=== PATIENT | female | born 1965 | race Hispanic/Latino ===

== ENCOUNTER → 2018-01-12 | Day surgery (SDC) | payer OTHER ==
[~2018-01-12] MED LIST: CEFTRIAXONE SOD 1 GM VIAL ONE; DEXAMETHASONE SOD PHOS INJ 4 MG/ML VIAL ONE; FENTANYL CITRATE/PF 100MCG/2 ML INJ ONE; IOPAMIDOL 610MG/1ML 300 MG/ML VIAL IV ONE; LIDOCAINE HCL 2% LOCAL INJ 5 ML SDV VIAL INJ ONE; MIDAZOLAM HCL 2 MG/2 ML VIAL ONE; MORPHINE SULFATE 2 MG/ML SYR ONE; ONDANSETRON HCL INJ 2 MG/ML VIAL ONE; PROPOFOL IV EMULSION 10 MG/ML 20 ML VIAL ONE; SEVOFLURANE INHAL SOLN 250 ML PEN BTL ONE; TYLENOL PO; TYLENOL WITH C1 EACH PO; ZESTRIL20 MG PO
--- OUTSIDE RECORDS SUMMARY | 2018-01-12 07:48 | XMS REPORT | Clinical Summary ---
Author Author [facility] Organization [facility] Address Unknown Phone Unavailable Care Team Providers Care Purchase Order Checker Name Role Phone Michelle López PCP Allergies No Known Allergies Current Medications Prescription Sig. Disp. Refills Start End Date Status Date lisinopril 09/22/19 Active (PRINIVIL,ZESTRIL) 20 mg 17 tablet lansoprazole (PREVACID) Take 30 mg by mouth Active 30 MG capsule daily. Active Problems Not on file Family History Medical History Relation Name Comments Diabetes Mother Heart disease Mother Relation Name Status Comments Brother Alive Father Mother Alive Sister Alive Social History Tobacco Use Types Packs/Day Years Used Date Never Smoker Alcohol Use Drinks/Week oz/Week Comments Yes Sex Assigned at Date Recorded Not on file Last Filed Vital Signs Not on file Plan of Treatment Health Maintenance Due Date Last Done Comments CERVICAL CANCER SCREENING 1987 BREAST CANCER SCREENING 02/09/2016 COLON CANCER SCREENING 02/09/2016 SHINGRIX VACCINE (#1) 02/09/2016 INFLUENZA VACCINE 03/14/2018 Results Not on fileafter 01/11/2017
--- NOTE | 2018-01-12 12:30 | Diagnostic Imaging Report ---
PROCEDURE: X-RAY RETROGRADE PYELOGRAM (left) COMPARISON: None. INDICATIONS: Not provided. FINDINGS: Contrast was instilled into the distal left ureter without stricture or abnormal filling defect. There is a partially duplicated left renal collecting system. The collecting system of the upper pole moiety is prominent suggestive of obstruction. Subsequently, a double J stent was placed into the upper pole moiety. The lower pole moiety filled normally with normal morphology. Cumulative fluoro time: 00:01:38 Cumulative area dose product: 738.90 cGycm2 Cumulative air kerma: 20.73 mGy CONCLUSION: Retrograde pyelogram with placement of ureteral stent as described above. Dictated by: Abel Haney M.D. on 01/12/2018 at 12:33 Electronically approved by: Abel Haney M.D. on 01/12/2018 at 12:33
--- NOTE | 2018-01-14 11:45 | Operative Report ---
DATE OF PROCEDURE: January 12, 2018 PREOPERATIVE DIAGNOSES 1. Left kidney stone. 2. Congenital left renal duplication. 3. Left hydronephrosis. POSTOPERATIVE DIAGNOSES 1. Left kidney stone. 2. Congenital left renal duplication. 3. Left hydronephrosis. PROCEDURES 1. Left-sided ureteroscopy with laser lithotripsy in a staged fashion (entirely separate procedure for large symptomatic kidney stone with failed lithotripsy). 2. Cystourethroscopy with insertion of a left indwelling ureteral stent (entirely separate procedure for the diagnosis of left hydronephrosis). 3. Supervision of fluoroscopy during the ureteroscopic portion. 4. Supervision of fluoroscopy for the stent portion. 5. Interpretation of retrograde pyelography. ANESTHESIA: General. ESTIMATED BLOOD LOSS: Minimal. COMPLICATIONS: None. INDICATIONS FOR PROCEDURE: Ms. Reyes is a 52-year-old female who has failed lithotripsy of a large symptomatic kidney stone. She and I had a long discussion regarding the alternatives, risks and benefits, including doing nothing, repeated shock-wave lithotripsy that had failed, ureteroscopy, percutaneous surgery or open surgery. She voiced an understanding of the options, the alternatives, and the risks and benefits, and she elected to proceed. PROCEDURE IN DETAIL: After informed consent was obtained, the patient was taken to the operating suite and placed supine on the operating table and underwent general anesthesia by the anesthesia service. She was placed in the dorsal lithotomy position. She was sterilely prepped and draped in the standard fashion for ureteroscopy. A 22.5-Dominican cystoscope was inserted per urethra. A normal urethra was noted. Panendoscopy of the bladder revealed no tumors and no stones. Both ureteral orifices were in their normal anatomic location and position. Retrograde pyelograms were performed, which revealed partially duplicated left collecting system. The stone was in the upper pole moiety. With a moderate degree of difficulty, a guidewire was inserted in the left upper pole. A ureteral access sheath was then deployed. A 2nd safety wire was introduced. The ureteroscope was driven into the upper pole. Utilizing a 365 micron laser fiber, the stone was ablated into fragments smaller than the wire. Retrograde pyelogram confirmed this. A 6 x 28 ureteral stent was then deployed with a coil in the upper pole moiety and a coil in the bladder. The patient's bladder was drained. She was awakened from anesthesia and transported to the recovery room in excellent condition. No untoward effects were noted. SUPERVISION OF FLUOROSCOPY AND INTERPRETATION OF RETROGRADE PYELOGRAPHY: I was present throughout the entire procedure and supervised the use of fluoroscopy. There was no radiologist present. Attention was turned toward the left ureteral orifice, which was catheterized, and a retrograde pyelogram revealed a partially duplicated system with a large obstructing stone in the left upper pole. Job#: [id number]
== END | disposition home or self-care (01) ==
LOC: OR 07:46
PROVIDERS: ATTEND Urology
DX: N20.0 Calculus of kidney (principal); Q63.0 Accessory kidney; N39.0 Urinary tract infection, site not specified; N13.30 Unspecified hydronephrosis; I10 Essential (primary) hypertension; Z01.810 Encounter for preprocedural cardiovascular examination
CPT/HCPCS: 52356; 74420; 81025; 93005; C1766; C1874; J0696; J1100; J2001; J2250; J2270; J2405; Q9967

== ENCOUNTER → 2018-03-06 | Outpatient (CLI) | payer OTHER ==
[~2018-03-06] MED LIST changes: -CEFTRIAXONE SOD 1 GM VIAL ONE; -DEXAMETHASONE SOD PHOS INJ 4 MG/ML VIAL ONE; -FENTANYL CITRATE/PF 100MCG/2 ML INJ ONE; -IOPAMIDOL 610MG/1ML 300 MG/ML VIAL IV ONE; -LIDOCAINE HCL 2% LOCAL INJ 5 ML SDV VIAL INJ ONE; -MIDAZOLAM HCL 2 MG/2 ML VIAL ONE; -MORPHINE SULFATE 2 MG/ML SYR ONE; -ONDANSETRON HCL INJ 2 MG/ML VIAL ONE; -PROPOFOL IV EMULSION 10 MG/ML 20 ML VIAL ONE; -SEVOFLURANE INHAL SOLN 250 ML PEN BTL ONE
--- NOTE | 2018-03-06 18:30 | Diagnostic Imaging Report ---
PROCEDURE:X-RAY ABDOMEN - KUB COMPARISON:None. INDICATIONS:CALCULUS OF KIDNEY FINDINGS: There is a non-obstructed bowel-gas pattern. Linear radiopaque density projecting in the superior to mid left renal shadow may represent rib calcification rather than a nonobstructing calculus. No other radiopaque densities project over the renal shadows, expected course of the ureters or bladder. Left pelvic phlebolith. No acute bony abnormalities. CONCLUSION: No definite calcifications over the genitourinary tract. Mehrdad Man M.D. Dictated by: Mehrdad Man M.D. on 03/06/2018 at 18:35 Electronically approved by: Mehrdad Man M.D. on 03/06/2018 at 18:35
== END ==
LOC: RAD 17:27
PROVIDERS: ATTEND Urology
DX: N20.0 Calculus of kidney (principal)
CPT/HCPCS: 74018

== ENCOUNTER → 2018-07-02 | Day surgery (SDC) | payer OTHER ==
[~2018-07-02] MED LIST changes: +ACETAMINOPHEN/CODEINE 300MG - 30MG TAB ONE; +AMOXICILLIN500 MG PO; +CEFTRIAXONE SOD 1 GM VIAL ONE; +DEXAMETHASONE SOD PHOS INJ 4 MG/ML VIAL ONE; +FENTANYL CITRATE/PF 100MCG/2 ML INJ ONE; +IOPAMIDOL 610MG/1ML 300 MG/ML VIAL IV ONE; +LIDOCAINE HCL 2% LOCAL INJ 5 ML SDV VIAL INJ ONE; +MIDAZOLAM HCL 2 MG/2 ML VIAL ONE; +ONDANSETRON HCL INJ 2 MG/ML VIAL ONE; +PROPOFOL IV EMULSION 10 MG/ML 20 ML VIAL ONE; +SEVOFLURANE INHAL SOLN 250 ML PEN BTL ONE
--- OUTSIDE RECORDS SUMMARY | 2018-07-02 05:13 | XMS REPORT | Continuity of Care Document ---
Author Author [facility] Organization Interface Address Unknown Phone Unavailable Problems Problem Status Onset Date Classification Date Reported Comments Source M76.821 - POSTERIOR TIBIAL TENDINITIS, R Active 01/26/2018 [facility] Medications Medication Details Route Status Patient Instructions Ordering Provider Order Date Source Allergies, Adverse Reactions, Alerts Substance Category Reaction Severity Reaction type Status Date Reported Comments Source Immunizations Immunization Date Given Site Status Last Updated Comments Source Results Order Name Results Value Reference Range Date Interpretation Comments Source Breast Complete [place] US Breast Complete [facility] US ULTRASOUND OF BOTH BREASTS AND AXILLA: 06/19/2018 CLINICAL: R92.8 Other Abnormal And Inconclusive Findings On Diagnostic Imaging Of Breast/R92.8 Other Abnormal And Inconclusive Findings On Diagnostic Imaging Of Breast. COMPARISON:Comparison is made to exams dated: 06/19/2018 mammogram and 05/30/2018 mammogram - [facility] Out[facility] Imaging Department. TECHNIQUE: Color flow and real-time ultrasound of both breasts and axilla regions were performed. FINDINGS: There is a 7 mm oval area of fibrocystic tissue with a circumscribed margin in the right breast at 1 o'clock posterior depth 5 cm from the nipple. This oval area of fibrocystic tissue is of mixed echogenicity. This may correlate with mammography findings. Color flow imaging demonstrates that there is no vascularity present. Additional small scattered cysts were also noted in the right breast. There is a 1 cm oval area of fibrocystic tissue with a circumscribed margin in the left breast at 9 o'clock posterior depth 4 cm from the nipple. This oval area of fibrocystic tissue is of mixed echogenicity. This correlates as an incidental finding. Color flow imaging demonstrates that there is no increase in vascularity. No abnormalities were seen sonographically in either axilla. No sonographic correlate is identified for the asymmetry seen in the left medial breast by mammography. The mammographic finding likely represents normal breast parenchyma. 6 month follow up mammogram is recommended. IMPRESSION: PROBABLY BENIGN RECOMMENDATION: The 7 mm oval area of fibrocystic tissue in the right breast at 1 o'clock posterior depth is probably benign. A follow-up in 6 months is recommended. The 1 cm oval area of fibrocystic tissue in the left breast at 9 o'clock posterior depth is probably benign. A follow-up in 6 months is recommended. A follow-up bilateral mammogram and an ultrasound in 6 months is recommended to demonstrate stability.(12/19/2018) This exam was interpreted at [id number] for [facility]. SUMMARY: These findings were discussed with the patient in detail at the time of examination. Bert Avery M.D. hh/:06/19/2018 15:10:41 Cigarette Roller(s): Tierney Laws [facility] letter sent: BI-RADS 3 Ultrasound BI-RADS: 3 Probably benign 06/19/2018 - - Read by: Bert Avery MD PHD Dictated Date/time: 06/19/18 15:10 Electronically Signed by: Bert Avery MD PHD 06/19/18 15:10 FINAL REPORT [facility] Breast Mammo Diag MOSES w ness incl CAD IN Breast Mammo Diag MOSES w ness incl CAD IN BILATERAL DIGITAL DIAGNOSTIC MAMMOGRAM 3D/2D WITH CAD: 06/19/2018 CLINICAL: R92.8/Abn Mammo. Current study was evaluated with a Computer Aided Detection (CAD) system. COMPARISON:Comparison is made to exam dated: 05/30/2018 mammogram - [facility] Imaging Department. TECHNIQUE: Digital Breast Tomosynthesis was performed and utilized for Interpretation. Current study was also evaluated with a Computer Aided Detection (CAD) system. FINDINGS: There are scattered fibroglandular densities in both breasts. Bilateral retropectoral saline implants are noted and imaged with the Sandy technique. Implants may obscure breast tissue, making mammographic interpretation difficult. There is a benign calcification in the right breast. There also are benign vascular calcifications in the left breast. There is an 8 mm round asymmetry with a macrolobulated margin in the right breast middle depth central to the nipple seen on the craniocaudal view only. There is a 6 mm asymmetry with amorphous calcifications in the left breast middle depth medial region seen on the craniocaudal view only. No other significant masses or calcifications are seen in either breast. IMPRESSION: INCOMPLETE: NEEDS ADDITIONAL IMAGING EVALUATION RECOMMENDATION:The 8 mm round asymmetry in the right breast middle depth central to the nipple seen on the craniocaudal view only likely represents a cyst or a fibroadenoma and is indeterminate. An ultrasound is recommended. The 6 mm asymmetry in the left breast middle depth medial region seen on the craniocaudal view only is consistent with fibroglandular tissue or fibrocystic change and is indeterminate. An ultrasound is recommended. This exam was interpreted at [id number] for [facility]. SUMMARY: Ultrasound will be performed at this time; please see separate report. Bert Avery M.D. hh/penrad:06/19/2018 09:28:50 Cigarette Roller(s): RT Nikolai(R)(M), [facility] Mammogram BI-RADS: 0 Indeterminate 06/19/2018 - - Read by: Bert Avery MD PHD Dictated Date/time: 06/19/18 09:28 Electronically Signed by: Bert Avery MD PHD 06/19/18 09:28 FINAL REPORT [facility] Breast Mammo Scrn MOSES incl CAD MA Breast Mammo Scrn MOSES incl CAD MA BILATERAL DIGITAL SCREENING MAMMOGRAM WITH CAD: 05/30/2018 CLINICAL: Z12.31/Screening. Current study was evaluated with a Computer Aided Detection (CAD) system. COMPARISON:No prior exams were available for comparison. TECHNIQUE: Mammographic views were obtained using digital acquisition. Current study was also evaluated with a Computer Aided Detection (CAD) system. FINDINGS: There are scattered fibroglandular densities in both breasts. Bilateral retropectoral saline implants are noted and imaged with the Sandy technique. Implants may obscure breast tissue, making mammographic interpretation difficult. There is a benign calcification in the right breast. There also are benign vascular calcifications in the left breast. There is an 8 mm round asymmetry with a macrolobulated margin in the right breast middle depth central to the nipple seen on the craniocaudal view only. There is a 6 mm asymmetry with a macrolobulated margin and calcifications in the left breast middle depth medial region seen on the craniocaudal view only. No other significant masses or calcifications are seen in either breast. IMPRESSION: INCOMPLETE: NEEDS ADDITIONAL IMAGING EVALUATION RECOMMENDATION:The 8 mm round asymmetry in the right breast middle depth central to the nipple seen on the craniocaudal view only is indeterminate. 3D imaging and lateral views as well as an ultrasound are recommended. Possible location on MLO view is marked. The 6 mm asymmetry in the left breast middle depth medial region seen on the craniocaudal view only is indeterminate. Spot magnification and lateral views as well as a possible ultrasound are recommended. This exam was interpreted at [id number] for [facility]. SUMMARY: Prior films are needed for comparison. If these become available, the above recommendations may not be needed and an addendum may be generated. Dr. Samira Alvarez M.D. egk/:05/30/2018 17:47:21 Cigarette Roller(s): Marcie Jack [facility] letter sent: BI-RADS 0 Mammogram BI-RADS: 0 Indeterminate 05/30/2018 - - Read by: Samira Alvarez MD Dictated Date/time: 05/30/18 17:47 Electronically Signed by: Samira Alvarez MD 05/30/18 17:47 FINAL REPORT [facility] Ankle wo contrast MRI Ankle wo contrast MRI Exam: Right Ankle wo contrast MRI Clinical Indication: - M76.821 Posterior tibial tendinitis, right leg. Right ankle pain. Comparison: None TECHNIQUE: Multiplanar, multisequence noncontrast magnetic resonance imaging of the right ankle. Marker placed on the skin overlying the region of interest. FINDINGS: BONES: Incidental chronic cystic change in the mid calcaneus adjacent to the sinus tarsi with minimal surrounding marrow edema. Similar findings to a minimal extent are present in the plantar lateral head of the talus. Remaining visualized bone marrow signal is within normal limits. No acute fracture. JOINTS: Alignment is within normal limits. Joint spaces are preserved. No significant degenerative change is appreciated. Talonavicular and subtalar joint effusions are present. TENDONS: Achilles tendon is intact. Peroneal tendons are intact. There is fluid distention of the posterior tibialis tendon sheath consistent with tenosynovitis. Mild fluid distention also present in the flexor digitorum longus tendon sheath. Medial compartment tendons otherwise appear intact. Anterior compartment tendons appear intact. Plantar fascia is intact with no abnormal thickening or fasciitis. LIGAMENTS: The anterior talofibular ligament and posterior talofibular ligament are intact. The calcaneofibular ligament is intact. The deltoid ligament is intact. Anterior and posterior distal tibiofibular ligaments are intact. Spring ligament is intact. Intertarsal ligaments unremarkable as visualized. SOFT TISSUES: Minimal medial ankle subcutaneous edema is present. No focal fluid collection is appreciated. The tarsal tunnel is unremarkable. There is loss of normal fatty signal with associated edema within the sinus tarsi. Overall muscle signal appears appropriate. Neurovascular structures are unremarkable as visualized. IMPRESSION: 1. Posterior tibial tenosynovitis and mild flexor digitorum tenosynovitis. 2. Loss of normal fatty signal with associated edema within the sinus tarsi. 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 3. Talonavicular and subtalar joint effusions. SL: [id number] 02/16/2018 - - Read by: Mayank Chavira MD Dictated Date/time: 02/16/18 19:23 Electronically Signed by: Mayank Chavira MD 02/16/18 19:33 FINAL REPORT [facility] Vital Signs Vital Sign Value Date Comments Source Encounters Location Location Details Encounter Type Encounter Number Reason For Visit Attending Provider ADM Date DC Date Status Source [id number] Shin Maharaj 02/05/2018 02/06/2018 [id number] [facility] Outpatient Imaging [facility] Out[facility] [id number] Shin Maharaj 02/16/2018 02/17/2018 [id number] Procedures Procedure Code Date Perfomer Comments Source
--- OUTSIDE RECORDS SUMMARY | 2018-07-02 05:13 | XMS REPORT | Summary of Care ---
Author Author [facility] Outpatient Imaging [facility] Outpatient Imaging [facility] Address Unknown Phone Unavailable Encounter HQ Encntr_alias(FIN) [id number] Date(s): 02/16/18 - 02/16/18 [facility] Outpatient Imaging [facility] [address] [place] [id number] Discharge Disposition: Home or Self Care Attending Physician: Shin Maharaj DPM Referring Physician: Shin Maharaj DPM Vital Signs No data available for this section Problem List No data available for this section Allergies, Adverse Reactions, Alerts No data available for this section Medications No data available for this section Results No data available for this section Immunizations No data available for this section Procedures No data available for this section Social History No data available for this section Assessment and Plan No data available for this section
--- OUTSIDE RECORDS SUMMARY | 2018-07-02 05:13 | XMS REPORT | Clinical Summary ---
Author Author [facility] Organization [facility] Address Unknown Phone Unavailable Care Team Providers Care Bus Driver/Monitor Name Role Phone Michelle López PCP Allergies No Known Allergies Medications End Date Status Medication Sig Dispensed Refills Start Date Active lisinopril 0 (PRINIVIL,ZESTRIL) 20 mg 7 tablet Active lansoprazole (PREVACID) Take 30 mg by 0 30 MG capsule mouth daily. Active Problems Not on file Family History Medical History Relation Name Comments Diabetes Mother Heart disease Mother Relation Name Status Comments Brother Alive Father Mother Alive Sister Alive Social History Date Tobacco Use Types Packs/Day Years Used Never Smoker Alcohol Use Drinks/Week oz/Week Comments Yes Sex Assigned at Date Recorded Not on file Industry Job Start Date Occupation Not on file Not on file Not on file Travel End Travel History Travel Start No recent travel history available. Last Filed Vital Signs Not on file Plan of Treatment Health Maintenance Due Date Last Done Comments MMR VACCINES (1 of - 1967 Standard series) VARICELLA VACCINES (1 of 1979 2 - 2-dose adolescent series) CERVICAL CANCER SCREENING 1987 BREAST CANCER SCREENING 02/09/2016 COLON CANCER SCREENING 02/09/2016 SHINGRIX VACCINE (1 of 2) 02/09/2016 INFLUENZA VACCINE 03/14/2018 HEPATITIS B VACCINES Aged Out No longer eligible based on patient's age to complete this topic IPV VACCINES Aged Out No longer eligible based on patient's age to complete this topic MENINGOCOCCAL VACCINE Aged Out No longer eligible based on patient's age to complete this topic Results Not on fileafter 07/01/2017 Advance Directives Patient has advance care planning documents on file. For more information, mariaa oneal contact: Arnoldo Vasquez [address] [place] [address]
--- OUTSIDE RECORDS SUMMARY | 2018-07-02 05:13 | XMS REPORT | Summary of Care ---
Author Author [facility] Outpatient Imaging [facility] Organization [facility] Outpatient Imaging [facility] Address Unknown Phone Unavailable Encounter HQ Encntr_alias(FIN) [id number] Date(s): 02/05/18 - 02/05/18 [facility] Outpatient Imaging [facility] [address] [place] [address] Discharge Disposition: Home or Self Care Attending Physician: Shin Maharaj DPM Vital Signs No [...]
--- OUTSIDE RECORDS SUMMARY | 2018-07-02 05:13 | XMS REPORT ---
[facility] Address Unknown Phone Unavailable Care Team Providers Care Insole Taper Name Role Phone MARK CARNES Unavailable Unavailable Problems This patient has no known problems. Allergies, Adverse Reactions, Alerts This patient has no known allergies or adverse reactions. Medications This patient has no known medications. Results Test Description Test Time Test Comments Text Results Atomic Results Result Comments ABDOMEN-1VIEW (KUB) 2018-03-06 18:35:00 [place] [address] Patient Name: LUIS ZURITA MR #: [id number] : 1965 Age/Sex: 53/F Req #: [id number] Adm Physician: Ordered by: MARK CARNES MD Report #: [id number] Location: [facility] Room/Bed: Procedure: [id number] DX/ABDOMEN-1VIEW (KUB) Exam Date: 03/06/18 Exam Time: 1740 REPORT STATUS: Signed PROCEDURE: X-RAY ABDOMEN - KUB COMPARISON: None. INDICATIONS: CALCULUS OF KIDNEY FINDINGS: There is a non-obstructed bowel-gas pattern. Linear radiopaque density projecting in the superior to mid left renal shadow may represent rib calcification rather than a nonobstructing calculus. No other radiopaque densities project over the renal shadows, expected course of the ureters or bladder. Left pelvic phlebolith. No acute bony abnormalities. CONCLUSION: No definite calcifications over the genitourinary tract. Serg Man M.D. Dictated by: Serg Man M.D. on 03/06/2018 at 18:35 Electronically approved by: Serg Man M.D. on 03/06/2018 at 18:35 Dictated By: SERG MAN MD 34 Transcribed By: ANGELIA on 03/06/181834 COPY TO: MARK CARNES MD RETROGRADE PYELOGRAM [place] [address] Patient Name: LUIS ZURITA MR #: [id number] : 1965 Age/Sex: 52/F Req #: [id number] Adm Physician: Ordered by: MARK CARNES MD Report #: [id number] Location: OR Room/Bed: Procedure: [id number] DX/RETROGRADE PYELOGRAM Exam Date: 01/12/18 Exam Time: 913 REPORT STATUS: Signed PROCEDURE: X-RAY RETROGRADE PYELOGRAM (left) COMPARISON: None. INDICATIONS: Not provided. FINDINGS: Contrast was instilled into the distal left ureter without stricture or abnormal filling defect. There is a partially duplicated left renal collecting system. The collecting system of the upper pole moiety is prominent suggestive of obstruction. Subsequently, a double J stent was placed into the upper pole moiety. The lower pole moiety filled normally with normal morphology. Cumulative fluoro time: 00:01:38 Cumulative area dose product: 738.90 cGycm2 Cumulative air kerma: 20.73 mGy CONCLUSION: Retrograde pyelogram with placement of ureteral stent as described above. Dictated by: Eric Haney M.D. on 01/12/2018 at 12:33 Electronically approved by: Eirc Haney M.D. on 01/12/2018 at 12:33 Dictated By: EIRC HANEY MD 1233 Transcribed By: ANGELIA on 01/12/18 1233 COPY TO: MARK CARNES MD
[2018-07-02 08:35] VITALS: BP 114/66
--- NOTE | 2018-07-03 08:12 | Operative Report ---
DATE OF PROCEDURE: July 02, 2018 PREOPERATIVE DIAGNOSES 1. Microscopic hematuria. 2. Left-sided renal calculi. 3. Left duplicated collecting system. POSTOPERATIVE DIAGNOSES 1. Microscopic hematuria. 2. Left-sided renal calculi. 3. Left duplicated collecting system. PROCEDURES 1. Cystourethroscopy with right ureteral catheterization and retrograde pyelogram (separate procedure for microscopic hematuria). 2. Left-sided ureteroscopy with laser lithotripsy and stent insertion (entirely separate procedure for left renal calculi). 3. Left ureteroscopy with stone extraction (entirely separate procedure for the purpose of sending stone for analysis, not required for laser lithotripsy). 4. Supervision of fluoroscopy with ureteroscopy. 5. Supervision of fluoroscopy for stent insertion and retrograde pyelograms. 6. Interpretation of retrograde pyelography. ANESTHESIA: General. ESTIMATED BLOOD LOSS: Minimal. COMPLICATIONS: None. INDICATIONS FOR PROCEDURE: Mrs. Reyes is a very pleasant 53-year-old female with a history of renal calculi. She and I had a long discussion about alternatives, risks and benefits including doing nothing, cystoscopy, ureteroscopy, shock wave lithotripsy, percutaneous surgery. She voiced understanding of the options, alternatives, risks, and benefits and she elected to proceed with ureteroscopy, laser lithotripsy and offered her the best benefit to risk ratio. She voiced explicit understand that the stent is a temporary indwelling device and it must be removed, and that failure to do so could lead to encrustation, infection, inflammation, abscess, loss of the kidney, and even . She elects to proceed. PROCEDURE IN DETAIL: After informed consent was obtained, the patient was taken to the operating suite. She was placed supine on the operating table. She underwent general anesthesia by the anesthesia service. She was then placed in the dorsal lithotomy position and sterilely prepped and draped in the standard fashion for cystoscopy. A time out was taken and site was confirmed. The urethra was catheterized with a 21-Mohawk cystoscope and panendoscopy of the bladder revealed no tumors and no stones. Both ureteral orifices were within normal anatomic location and position and were single in nature. Bilateral ureteral orifices were catheterized. A right retrograde pyelogram was normal. 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 With a minimal degree of difficulty, the upper pole moiety where the stones were located was catheterized. This was dilated. Ureteroscopic sheath was placed. The flexible ureteroscope was advanced to the level of the upper pole moiety renal pelvis. This was mapped. Multiple large 5-6 mm stones were seen. Utilizing 365 micron laser fiber, these were all ablated in fragments smaller than 3 mm. Multiple fragments were basket extracted and passed off the table as specimens with only small fragments remaining. The ureteroscope was withdrawn. A 7 x 26 ureteral stone was deployed with the coil in the upper pole moiety and a coil in the bladder. The patient's bladder was drained. She was awakened from anesthesia and transported to the recovery room in excellent condition. SUPERVISION OF FLUOROSCOPY, INTERPRETATION OF RETROGRADE URETERAL PYELOGRAPHY: I was present throughout the entire procedure and I supervised the use of fluoroscopy. There was no radiologist present at any time during this procedure. Attention was turned toward the left and right ureteral orifices and catheterized. Retrograde pyelograms were performed. On the right side, there was a delicate ureter and double collecting system. There was no hydronephrosis. On the left side, there was partial duplication. Multiple upper pole moiety filling defects consistent with a renal calculi were previously identified. Postop views on the left side revealed the stent in adequate position in the upper pole moiety. Job#: [id number] FLORES
== END | disposition home or self-care (01) ==
LOC: OR 05:11
PROVIDERS: ATTEND Urology
DX: N20.1 Calculus of ureter (principal); R31.29 Other microscopic hematuria; Q62.5 Duplication of ureter; N20.0 Calculus of kidney; N39.0 Urinary tract infection, site not specified; K68.9 Other disorders of retroperitoneum; I10 Essential (primary) hypertension; Z01.810 Encounter for preprocedural cardiovascular examination
CPT/HCPCS: 52356; 74420; 88300; 93005; C1758; C1766; C2617; J0696; J1100; J2001; J2250; J2405; J2704; Q9967

== ENCOUNTER → 2018-07-25 | Day surgery (SDC) | payer OTHER ==
[~2018-07-25] MED LIST changes: -ACETAMINOPHEN/CODEINE 300MG - 30MG TAB ONE; +KETOROLAC TROMETHAMINE 30 MG/ML VIAL ONE
--- OUTSIDE RECORDS SUMMARY | 2018-07-25 14:39 | XMS REPORT | Clinical Summary ---
Author Author [facility] Address Unknown Phone Unavailable Care Team Providers Care Area Coordinator Name Role Phone Michelle López PCP Allergies [...] complete this topic Results Not on fileafter 07/24/2017 Advance Directives Patient has advance care planning documents on file. For more information, mariaa oneal contact: Arnoldo Vasquez [address] [place] [address]
--- NOTE | 2018-07-25 15:25 | Diagnostic Imaging Report ---
RADIOGRAPH(S) OF THE ABDOMEN AND PELVIS, 2 view(s) HISTORY: Preop, kidney stone surgery COMPARISON: None available. FINDINGS: No specific evidence of obstruction or ileus. A left-sided ureteral catheter. At least 2 lobulated left abdominal calcification densities, both measuring up to 1.3 cm. Probable small bilateral pelvic phlebolith. The bones are partially obscured by stool and overlying bowel gas. IMPRESSION: 1. Left ureteral stent. 2. Two probable large left renal calculi. Signed by: Dr. Дмитрий Cortez D.O., M.M.M. on 07/25/2018 3:22 PM
[2018-07-25 18:05] VITALS: BP 131/76
--- NOTE | 2018-07-25 18:19 | Operative Report ---
DATE OF PROCEDURE: July 25, 2018 PREOPERATIVE DIAGNOSES 1. Left kidney stones. 2. Left ureteral stent. 3. Left hydronephrosis. POSTOPERATIVE DIAGNOSES 1. Left kidney stones. 2. Left ureteral stent. 3. Left hydronephrosis. PROCEDURES 1. Complicated cystoscopy with stent removal (entire separate procedure for a migrated left ureteral stent). 2. Left-sided flexible and rigid ureteroscopy with laser lithotripsy (entire separate procedure for left renal calculi). 3. Supervision of fluoroscopy for ureteroscopy and stone removal portion. 4. Interpretation of retrograde pyelography. ANESTHESIA: General. ESTIMATED BLOOD LOSS: Minimal. COMPLICATIONS: None. INDICATIONS: Ms. Reyes is a very pleasant 53-year-old female with a partially duplicated left collecting system and recurrent kidney stones. She and I had a long discussion about alternatives, the risks, and the benefits including doing nothing, shockwave lithotripsy, ureteroscopy, percutaneous surgery, open surgery. She voiced clear understanding of options, alternatives, the risks and benefits and she elected to proceed. PROCEDURE IN DETAIL: After informed consent was obtained, the patient was taken to the operative suite. She was placed supine on the operating table. She underwent general anesthesia by anesthesia service. She was placed in dorsal lithotomy position, sterilely prepped and draped in the standard fashion for cystoscopy. A 22.5-Spanish cystoscope was inserted per urethra with normal urethra was noted. Panendoscopy of the bladder revealed tumors, no stones. Both ureteral orifices revealed normal anatomic location and position and were seen to efflux urine. However, no stent was visualized on the left side. The stents have migrated proximally into the distal ureter. A rigid ureteroscope was advanced utilizing a 3-prong grasper. The stent was managed to be removed. A safety wire was introduced alongside the stent. The ureteroscope was advanced to the proximal ureter, where a duplication was again noted. The ureteroscope was first driven to the lower pole moiety. A retrograde pyelogram performed revealing no calcifications. Attention was then turned toward the upper pole moiety. A flexible ureteroscope was advanced. There was a plethora conglomeration of stones, the largest fragments approximately 6 x 7 mm. Utilizing a 275 micron laser fiber, the stones were obliterated and fragmented smaller than the guidewire. At this time, no obstructing stones seen and those stones should pass without difficulty. The ureteroscope and safety guidewire were removed. The bladder was drained. The patient was awakened from anesthesia and transported to the recovery room in excellent condition. SUPERVISION OF FLUOROSCOPY AND INTERPRETATION OF RETROGRADE PYELOGRAPHY: I was present throughout the entire procedure and supervised the fluoroscopy. There was no radiologist present at any time during the procedure. Attention was turned to the left ureteral orifice. It was catheterized. Through uteroscope, a retrograde pyelogram was performed revealing a partially duplicated system. Lower pole moiety was clean of stones. The upper pole moiety has multiple stones largest approximately 1 cm x 1 cm, multiple fragments 5 x 6 mm. Of note, multiple stones have been broken in small fragments, interim removal of stent. Job#: [id number] cc: DR ALBERT JIMENEZ [facility] HOSPITALKelby
== END | disposition home or self-care (01) ==
LOC: OR 14:38
PROVIDERS: ATTEND Urology
DX: N20.0 Calculus of kidney (principal); N13.30 Unspecified hydronephrosis; Z46.6 Encounter for fitting and adjustment of urinary device; Q62.5 Duplication of ureter; N28.1 Cyst of kidney, acquired; N39.0 Urinary tract infection, site not specified; R35.1 Nocturia; I10 Essential (primary) hypertension; Z68.31 Body mass index [BMI] 31.0-31.9, adult
CPT/HCPCS: 52353; 74420; C1766; J0696; J1100; J1885; J2001; J2250; J2405; J2704; Q9967; 74018